=== PATIENT | male | born 1985 | race Caucasian/White ===

== ENCOUNTER 2018-02-04 09:23 | Emergency (ER) | payer OTHER ==
[~2018-02-04] VITALS: Ht 170.2 cm; Wt 88.5 kg
[2018-02-04 09:32] VITALS: BP 152/97
--- NOTE | 2018-02-04 09:39 | NUR ---
Patient ambulated to bed 7. RN evaluating patient at bedside.
--- NOTE | 2018-02-04 10:04 | NUR ---
Dr. Jang evaluating patient at bedside.
--- NOTE | 2018-02-04 10:06 | NUR ---
PT/ BIB SELF, C/O UPPER MEDIAL AB PAIN X 2 DAYS, CRAMPING 7/10 PAIN SCALE, NON TENDER TO TOUCH. PT STATES HE ATE [place] WHEN PAIN STARTED AND HASN'T GONE AWAY SINCE. +NAUSEA, -V/D, [facility]BM 02/02/18. PT. STATES HE HAS NO APPETITE. PMH; NONE RX; MOTRIN 800MG YESTERDAY
[2018-02-04 10:25] VITALS: BP 148/92
--- NOTE | 2018-02-04 10:25 | NUR ---
Patient discharged with v/s stable. Written and verbal after care instructions given and explained. Patient alert, oriented and verbalized understanding of instructions. Ambulatory with steady gait. All questions addressed prior to discharge. ID band removed. Patient advised to follow up with PMD. Rx of PROTONIX 40MG given. Patient educated on indication of medication including possible reaction and side effects. Opportunity to ask questions provided and answered.
== END 2018-02-04 10:25 | disposition home or self-care (01) ==
LOC: MED 09:23
DX: K21.9 Gastro-esophageal reflux disease without esophagitis (principal)
CPT/HCPCS: 99283

== ENCOUNTER 2019-05-12 10:13 | Emergency (ER) | payer OTHER ==
[~2019-05-12] VITALS: Ht 180.3 cm; Wt 91.6 kg
[2019-05-12 10:20] VITALS: BP 144/99
== END 2019-05-12 10:50 | disposition home or self-care (01) ==
LOC: MED 10:13
DX: S30.0XXA Contusion of lower back and pelvis, initial encounter (principal); W55.12XA Struck by horse, initial encounter; Y93.89 Activity, other specified; Y92.89 Other specified places as the place of occurrence of the external cause; Y99.8 Other external cause status
CPT/HCPCS: 99281

== ENCOUNTER 2021-03-06 09:15 | Emergency (ER) | payer OTHER, SELFPAY ==
[~2021-03-06] VITALS: Ht 170.2 cm; Wt 86.6 kg
[2021-03-06] MEDS ORDERED: IBUP-2213 PO (09:50)
[2021-03-06] MEDS ORDERED: BENZ100C6 PO (09:50)
[2021-03-06 10:10] VITALS: BP 156/91
--- NOTE | 2021-03-06 10:14 | NUR ---
novel swabbed at this time
--- NOTE | 2021-03-06 10:14 | NUR ---
Note chasitylee in EDM - 03/06/21 at 1014 by [facility] 47 y/o female, c/o chest and nasal congestion, cp, sob, sore throat for 5 days, pt states she was seen here previous and tested positive on 03/03/21. 12/04 pain at this time. pmh: htn, hyperlipidemia, bipolar nka med: cough syrup, naproxen
[2021-03-06 11:04] VITALS: BP 144/86
--- NOTE | 2021-03-06 11:05 | NUR ---
Patient discharged with v/s stable. Written and verbal after care instructions given FOR UPPER RESPIRATORY INFECTION and explained. Patient alert, oriented and verbalized understanding of instructions. Ambulatory with steady gait. All questions addressed prior to discharge. ID band removed. Patient advised to follow up with PMD. Rx of BENZONATATE AND IBUPROFEN given. Patient educated on indication of medication including possible reaction and side effects. Opportunity to ask questions provided and answered.
== END 2021-03-06 11:05 | disposition home or self-care (01) ==
LOC: MED 09:15
DX: J06.9 Acute upper respiratory infection, unspecified (principal); Z20.822 Contact with and (suspected) exposure to COVID-19
CPT/HCPCS: 99283; U0003